=== PATIENT | female | born 2000 | race Caucasian/White ===

== ENCOUNTER 2020-06-12 14:17 | Emergency (ER) | payer OTHER ==
--- NOTE | 2020-06-12 15:48 | CR ---
PROCEDURE INFORMATION: Exam: XR Left Ankle Exam date and time: 06/12/2020 3:39 PM Age: 19 years old Clinical indication: Other: Twisted/pain; Additional info: Injury TECHNIQUE: Imaging protocol: XR Left ankle. Views: 3 or more views. COMPARISON: No relevant prior studies available. FINDINGS: Bones/joints: There is no evidence of acute fracture. There is no evidence of joint malalignment or dislocation. Small joint effusion. Soft tissues: There are no soft tissue masses or fluid collections. IMPRESSION: 1. No evidence of acute fracture. 2. No evidence of acute dislocation.
--- NOTE | 2020-06-12 16:01 | EDM.PDOC ---
Scribed by Sandhya Harris 06/12/20 [address] [facility] MD ED HPI GENERAL MEDICAL PROBLEM - General Chief Complaint: Lower Extremity Injury/Pain Stated Complaint: SPRAINED ANKLE Time Seen by Provider: 06/12/20 15:48 Source of Information: Reports: Patient, RN, RN Notes Reviewed History Limitations: Reports: No Limitations - History of Present Illness INITIAL COMMENTS - FREE TEXT/NARRATIVE: Patient presents to the ER stating doing an obstacle course and landed weird on left ankle on outside. No snap or pop. She can walk on it. No numbness or tingling in the toes. No previous injury. Onset: Today Duration: Constant Location: Reports: Lower Extremity, Left Quality: Reports: Ache Severity: Moderate Improves with: Reports: None Worsens with: Reports: None Associated Symptoms: Reports: No Other Symptoms Left Ankle Pain Score (Numeric/FACES): 3 - Related Data Allergies Allergy/AdvReac Type Severity Reaction Status Date / Time No Known Allergies Allergy Verified 06/12/20 15:15 Home Meds: Home Meds Cetirizine HCl [Zyrtec] 10 mg PO ASDIRECTED PRN 06/12/20 [History] Past Medical History HEENT History: Reports: None Cardiovascular History: Reports: None Respiratory History: Reports: None Gastrointestinal History: Reports: None Genitourinary History: Reports: None 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 Musculoskeletal History: Reports: None Neurological History: Reports: None Psychiatric History: Reports: Anxiety, Depression Endocrine/Metabolic History: Reports: None Hematologic History: Reports: None Immunologic History: Reports: None Oncologic (Cancer) History: Reports: None Dermatologic History: Reports: None - Infectious Disease History Infectious Disease History: Reports: None - Past Surgical History Head Surgeries/Procedures: Reports: None HEENT Surgical History: Reports: LASIK, Oral Surgery Social & Family History - Tobacco Use Smoking Status *Q: Never Smoker Second Hand Smoke Exposure: No - Caffeine Use Caffeine Use: Reports: Energy Drinks, Tea - Recreational Drug Use Recreational Drug Use: No Review of Systems - Review of Systems Review Of Systems: Comprehensive ROS is negative, except as noted in HPI. ED EXAM, GENERAL - Physical Exam Exam: See Below Exam Limited By: No Limitations General Appearance: Alert, WD/WN, No Apparent Distress Head: Atraumatic, Normocephalic Neck: Normal Inspection Respiratory/Chest: No Respiratory Distress Cardiovascular: Regular Rate, Rhythm Extremities: Other (left ankle is positive for TTP "ATFL". There is mild bruising and swelling laterally. Negative ott[place] rolls. ) Neurological: Alert, Oriented, CN II-XII Intact, Normal Cognition, Normal Gait, Normal Reflexes, No Motor/Sensory Deficits Psychiatric: Normal Affect, Normal Mood Skin Exam: Warm, Dry Lymphatic: No Adenopathy Course - Vital Signs Last Recorded V/S: Last Vital Signs Temp 97.9 F 06/12/20 15:08 Pulse 107 H 06/12/20 15:08 Resp 16 06/12/20 15:08 BP 118/54 L 06/12/20 15:08 Pulse Ox 99 06/12/20 15:08 - Radiology Interpretation Free Text/Narrative:: Left ankle x-ray no acute fracture. See rad report. Departure - Departure Time of Disposition: 15:56 Disposition: Home, Self-Care 01 Condition: Good Clinical Impression: First degree ankle sprain Qualifiers: Encounter type: initial encounter Laterality: left Qualified Code(s): S93.402A - Sprain of unspecified ligament of left ankle, initial encounter - Discharge Information *PRESCRIPTION DRUG MONITORING PROGRAM REVIEWED*: Not Applicable Instructions: Ankle Sprain, [id number] Forms: ED Department Discharge Additional Instructions: Follow up in primary care provider in 5 to 7 days. Sepsis Event Note (ED) - Evaluation Sepsis Screening Result: No Definite Risk - Focused Exam Vital Signs: Vital Signs Temp Pulse Resp BP Pulse Ox 06/12/20 15:08 97.9 F 107 H 16 118/54 L 99 - Assessment/Plan Assessment:: 19 yo female with first degree ankle sprain Plan: OTC meds PRN for pain RICE therapy FU with PCP in 5-7 days I have read and agree with the documentation that has been completed regarding this visit. By signing this record, I attest that the documentation was completed in my physical presence and is an accurate record of the encounter.
== END 2020-06-12 16:05 | disposition home or self-care (01) ==
LOC: DL.ED 14:17
DX: S93.402A Sprain of unspecified ligament of left ankle, initial encounter (principal); X50.1XXA Overexertion from prolonged static or awkward postures, initial encounter
CPT/HCPCS: 73610-LT; 99283-25